=== PATIENT | female | born 1980 | race Caucasian/White ===

== ENCOUNTER 2019-01-24 02:28 | Emergency (ER) | payer MEDICAID ==
--- NOTE | 2019-01-24 03:14 | EDM.PDOC ---
ED HPI GENERAL MEDICAL PROBLEM - General Chief Complaint: Upper Extremity Injury/Pain Stated Complaint: cant get ring off finger Time Seen by Provider: 01/24/19 02:35 - History of Present Illness INITIAL COMMENTS - FREE TEXT/NARRATIVE: 38-year-old female presents emergency room with a ring stuck on her left ring finger Patient gave a little over 24 hours ago and put her engagement ring back on she developed some swelling. She's tried on liquid dental floss and several other maneuvers at home. But she cannot get the ring off. Left Finger-Ring Pain Score (Numeric/FACES): 3 - Related Data Allergies Allergy/AdvReac Type Severity Reaction Status Date / Time No Known Allergies Allergy Verified 01/24/19 02:38 Home Meds: Home Meds Enoxaparin Sodium [Lovenox] 40 mg SQ BID 12/13/18 [History] Iron,Carbonyl/Ascorbic Acid [Iron 100-Vitamin C Tablet] 1 each PO DAILY [History] Prenat Vit Comb.10/Iron/Fa/Dha [Vitafol-OB + DHA] 1 each PO DAILY 12/13/18 [ History] Past Medical History Cardiovascular History: Reports: Blood Clots/VTE/DVT Respiratory History: Reports: PE Social & Family History - Tobacco Use Smoking Status *Q: Never Smoker - Recreational Drug Use Recreational Drug Use: No Review of Systems - Review of Systems Review Of Systems: See Below Constitutional: Reports: No Symptoms Respiratory: Reports: No Symptoms Cardiovascular: Reports: No Symptoms GI/Abdominal: Reports: No Symptoms ED EXAM, GENERAL - Physical Exam Exam: See Below Exam Limited By: No Limitations General Appearance: Alert, No Apparent Distress Respiratory/Chest: No Respiratory Distress, Lungs Clear, Normal Breath Sounds Cardiovascular: Regular Rate, Rhythm, No Edema, No Murmur Extremities: Other (Patient has marked swelling in the soft tissue over the proximal phalanx of the affected finger. I tried several maneuvers and could not get the ring to come loose.) ED TRAUMA EXTREMITY PROCEDURES - Additional/Other Procedure(s) Other (Free Text) Procedure(s): Nursing using a ring cutter was able to remove the ring Course - Vital Signs Last Recorded V/S: Last Vital Signs Temp 37.0 C 01/24/19 02:36 Pulse 69 01/24/19 02:36 Resp 16 01/24/19 02:36 BP 124/89 01/24/19 02:36 Pulse Ox 97 01/24/19 02:36 Departure - Departure Time of Disposition: 03:12 Disposition: Home, Self-Care 01 Clinical Impression: External constriction of finger - Discharge Information Referrals: PCP,None [Primary Care Provider] - Forms: ED Department Discharge Additional Instructions: Return to the emergency room with any questions problems worsening symptoms.
== END 2019-01-24 03:22 | disposition home or self-care (01) ==
LOC: JD.ED 02:28
DX: S60.445A External constriction of left ring finger, initial encounter (principal); I82.409 Acute embolism and thrombosis of unspecified deep veins of unspecified lower extremity; Z79.01 Long term (current) use of anticoagulants; W49.04XA Ring or other jewelry causing external constriction, initial encounter
CPT/HCPCS: 99283

== ENCOUNTER 2019-02-01 17:37 | Emergency (ER) | payer MEDICAID ==
--- NOTE | 2019-02-01 17:53 | EDM.PDOC ---
ED HPI GENERAL MEDICAL PROBLEM - General Chief Complaint: Genitourinary Problem Stated Complaint: HEAVY VAG BLEEDING Time Seen by Provider: 02/01/19 17:46 - History of Present Illness INITIAL COMMENTS - FREE TEXT/NARRATIVE: 38-year-old female presents with bleeding. Patient is a 5 now para 4, 1 molar he had a fairly normal spontaneous vaginal delivery on the seventh of this month. Her pregnancies complicated by being on Lovenox because of a pulmonary embolism in the past. She just completed her oral therapy about the time she was diagnosed the . She was continued on Lovenox twice daily this was decreased to once daily about a week before sure due date and the plan was to continue once daily for 6 weeks and after delivery Shortly before arrival to the emergency room the patient thought she was hemorrhaging she past 3 clots after going to the bathroom were a little uncertain as to the volume of the clots but they figured it was about the size of a baseball with a conglomerate of all 3 clots. She had some bleeding small amount on the way to the emergency room.. She thinks her blood type is A+. - Related Data Allergies Allergy/AdvReac Type Severity Reaction Status Date / Time No Known Allergies Allergy Verified 02/01/19 17:49 Home Meds: Home Meds Enoxaparin Sodium [Lovenox] 40 mg SQ DAILY 12/13/18 [History] Iron,Carbonyl/Ascorbic Acid [Iron 100-Vitamin C Tablet] 1 each PO DAILY [History] Prenat Vit Comb.10/Iron/Fa/Dha [Vitafol-OB + DHA] 1 each PO DAILY 12/13/18 [ History] Past Medical History Cardiovascular History: Reports: Blood Clots/VTE/DVT Respiratory History: Reports: PE ED ROS GENERAL - Review of Systems Review Of Systems: See Below Constitutional: Reports: No Symptoms. Denies: Fever, Chills HEENT: Reports: No Symptoms, Vertigo Cardiovascular: Reports: No Symptoms Endocrine: Reports: No Symptoms GI/Abdominal: Reports: No Symptoms : Denies: Discharge, Dysuria, Flank Pain, Frequency, Hematuria, Incontinence, Pain, Urgency Musculoskeletal: Reports: No Symptoms Skin: Reports: No Symptoms Neurological: Reports: No Symptoms Psychiatric: Reports: No Symptoms Hematologic/Lymphatic: Reports: No Symptoms ED EXAM - Physical Exam Exam: See Below Exam Limited By: No Limitations General Appearance: Alert, No Apparent Distress, Other (Vital signs stable afebrile she is not tachycardic blood pressure looks good) Head: Atraumatic, Normocephalic Neck: Normal Inspection, Supple, Non-Tender, Full Range of Motion Respiratory/Chest: No Respiratory Distress, Lungs Clear, Normal Breath Sounds Cardiovascular: Regular Rate, Rhythm, No Edema, No Murmur, Irregularly Irregular GI/Abdominal Exam: Normal Bowel Sounds, Non-Tender, Other (No tenderness with palpation.) (Female) Exam: Normal External Exam, Vaginal Bleeding, Other (No vaginal lacerations identified cervix is closed at this point she had a small amount of blood that was suctioned out of the vaginal vault the cervix was fully visualized no tissue identified in really no active bleeding. After this the patient was observed for couple hours had an ultrasound done where she really didn't have any active bleeding ultrasound report showed small amount of fluid within the endometrial cavity most likely due to blood possible small amount of soft tissue density been seen difficult to exclude minimal retained products of conception remaining pelvic ultrasound was unremarkable. Auditory evaluation shows a very get H&H white count is not elevated no leftward shift chemistries look normal she is indeed blood type A positive) Extremities: Normal Inspection, Non-Tender, No Pedal Edema Neurological: Alert, Oriented, Normal Cognition Course - Vital Signs Last Recorded V/S: Last Vital Signs Temp 36.3 C 02/01/19 17:41 Pulse 90 02/01/19 17:41 Resp 16 02/01/19 17:41 BP 139/86 02/01/19 17:41 Pulse Ox 98 02/01/19 17:41 - Orders/Labs/Meds Orders: Active Orders 24 hr Category Date Time Status Pelvic Exam, Set Up [RC] ASDIRECTED Care 02/01/19 18:00 Active PATIENT RETYPE [BBK] Routine Lab 02/01/19 18:53 Ordered Lactated Ringers [Ringers, Lactated] 1,000 ml Med 02/01/19 18:15 Active IV ASDIRECTED Medication Orders Lactated Ringer's (Ringers, Lactated) 1,000 mls @ 100 mls/hr IV ASDIRECTED ALESSIA Last Admin: 02/01/19 18:27 Dose: 100 mls/hr Labs: Laboratory Tests 10/02/01/19 02/01/19 Range/Units 17:40 17:40 17:40 WBC 7.91 (3.98-10.04) K/mm3 RBC 4.99 (3.98-5.22) M/mm3 Hgb 16.1 H (11.2-15.7) gm/dl Hct 48.4 H (34.1-44.9) % MCV 97.0 H (79.4-94.8) fl MCH 32.3 H (25.6-32.2) pg MCHC 33.3 (32.2-35.5) g/dl RDW Std Deviation 43.5 (36.4-46.3) fL Plt Count 441 H (182-369) K/mm3 MPV 10.3 (9.4-12.3) fl Neutrophils % (Manual) 58 (40-60) % Band Neutrophils % 0 (0-10) % Lymphocytes % (Manual) 29 (20-40) % Atypical Lymphs % 0 % Monocytes % (Manual) 6 (2-10) % Eosinophils % (Manual) 6 H (0.7-5.8) % Basophils % (Manual) 1 (0.1-1.2) Platelet Estimate Adequate RBC Morph Comment Normal PT 10.2 (9.7-12.0) SECONDS INR 0.93 APTT (22-31) SECONDS Sodium 139 (136-145) mEq/L Potassium 3.8 (3.5-5.1) mEq/L Chloride 102 (98-107) mEq/L Carbon Dioxide 26 (21-32) mEq/L Anion Gap 14.8 (5-15) BUN 11 (7-18) mg/dL Creatinine 0.7 (0.55-1.02) mg/dL Est Cr Clr Drug Dosing 113.88 mL/min Estimated GFR (MDRD) > 60 (>60) mL/min BUN/Creatinine Ratio 15.7 (14-18) Glucose 102 (74-106) mg/dL Calcium 9.4 (8.5-10.1) mg/dL Total Bilirubin 0.2 (0.2-1.0) mg/dL AST 14 L (15-37) U/L ALT 29 (14-59) U/L Alkaline Phosphatase 96 (46-116) U/L Total Protein 7.6 (6.4-8.2) g/dl Albumin 3.5 (3.4-5.0) g/dl Globulin 4.1 gm/dL Albumin/Globulin Ratio 0.9 L (1-2) Blood Type Gel Antibody Screen 02/01/19 02/01/19 Range/Units 17:40 17:40 WBC (3.98-10.04) K/mm3 RBC (3.98-5.22) M/mm3 Hgb (11.2-15.7) gm/dl Hct (34.1-44.9) % MCV (79.4-94.8) fl MCH (25.6-32.2) pg MCHC (32.2-35.5) g/dl RDW Std Deviation (36.4-46.3) fL Plt Count (182-369) K/mm3 MPV (9.4-12.3) fl Neutrophils % (Manual) (40-60) % Band Neutrophils % (0-10) % Lymphocytes % (Manual) (20-40) % Atypical Lymphs % % Monocytes % (Manual) (2-10) % Eosinophils % (Manual) (0.7-5.8) % Basophils % (Manual) (0.1-1.2) Platelet Estimate RBC Morph Comment PT (9.7-12.0) SECONDS INR APTT 26 (22-31) SECONDS Sodium (136-145) mEq/L Potassium (3.5-5.1) mEq/L Chloride (98-107) mEq/L Carbon Dioxide (21-32) mEq/L Anion Gap (5-15) BUN (7-18) mg/dL Creatinine (0.55-1.02) mg/dL Est Cr Clr Drug Dosing mL/min Estimated GFR (MDRD) (>60) mL/min BUN/Creatinine Ratio (14-18) Glucose (74-106) mg/dL Calcium (8.5-10.1) mg/dL Total Bilirubin (0.2-1.0) mg/dL AST (15-37) U/L ALT (14-59) U/L Alkaline Phosphatase (46-116) U/L Total Protein (6.4-8.2) g/dl Albumin (3.4-5.0) g/dl Globulin gm/dL Albumin/Globulin Ratio (1-2) Blood Type A POSITIVE Gel Antibody Screen Negative Meds: Medications Generic Name Dose Route Start Last Admin Trade Name Sumit PRN Reason Stop Dose Admin Lactated Ringer's 1,000 mls @ 100 mls/hr 02/01/19 18:15 02/01/19 18:27 Ringers, Lactated IV 100 mls/hr ASDIRECTED ALESSIA Administration Discontinued Medications Generic Name Dose Route Start Last Admin Trade Name Sumit PRN Reason Stop Dose Admin Ondansetron HCl 4 mg 02/01/19 18:23 Zofran IVPUSH 02/01/19 18:24 ONETIME ONE Ondansetron HCl Confirm 02/01/19 18:24 02/01/19 18:27 Zofran Administered 02/01/19 18:25 Not Given Dose 4 mg .ROUTE .STK-MED ONE - Re-Assessments/Exams Free Text/Narrative Re-Assessment/Exam: 02/01/19 21:00 The patient is indeed blood type A positive. Her hemoglobin and hematocrit and CBC looks very unremarkable and pretty good for being chemistries look good coags are normal. Early in the patient's course the case was discussed with Dr. De La Paz. And after all the results were back the patient will be continued on her Lovenox and she is to call her vocational guidance counselor first thing in the morning to discuss the situation with her. Departure - Departure Time of Disposition: 20:37 Disposition: Home, Self-Care 01 Clinical Impression: bleeding - Discharge Information Instructions: Hemorrhage Referrals: PCP,None [Primary Care Provider] - Forms: ED Department Discharge Additional Instructions: Return to the emergency room with any questions problems or work worsening symptoms. Call your vocational guidance counselor in the morning. Continue the Lovenox as prescribed. - My Orders Last 24 Hours: My Active Orders 02/01/19 18:00 Pelvic Exam, Set Up [RC] ASDIRECTED 02/01/19 18:15 Lactated Ringers [Ringers, Lactated] 1,000 ml IV ASDIRECTED 02/01/19 18:53 PATIENT RETYPE [BBK] Routine - Assessment/Plan Last 24 Hours: My Active Orders 02/01/19 18:00 Pelvic Exam, Set Up [RC] ASDIRECTED 02/01/19 18:15 Lactated Ringers [Ringers, Lactated] 1,000 ml IV ASDIRECTED 02/01/19 18:53 PATIENT RETYPE [BBK] Routine
[2019-02-01] MEDS ORDERED: Lactated Ringers 1,000 ML IV SCH (18:15)
[2019-02-01] MEDS ORDERED: Ondansetron 4 MG/2 ML SDV IVPUSH ONE (18:23)
[2019-02-01] MEDS ORDERED: Ondansetron 4 MG/2 ML SDV ONE (18:24)
--- NOTE | 2019-02-01 20:08 | US ---
Pelvic ultrasound: Multiple real-time images were obtained transvaginally. Comparison: No previous pelvic imaging. Small amount of fluid seen within the endometrial cavity most likely due to blood containing minimal soft tissue density. Difficult to exclude minimal retained products of conception. No myometrial abnormality is seen. Small cyst is noted within the right ovary measuring 1.9 cm which is simple and felt to be incidental. Left ovary is unremarkable. No free fluid is seen. Measurements: Uterus: Length 17.9 cm, AP height is 7.5 cm, transverse width 11.9 cm Right ovary: 4.1 x 1.4 x 2.7 cm Left ovary: 2.7 x 1.2 x 2.7 cm Impression: 1. Small amount of fluid within the endometrial cavity most likely due to blood. There is a small amount of soft tissue density being seen and difficult to exclude minimal retained products of conception. 2. Other portions of the pelvic ultrasound study are unremarkable. Diagnostic code #3
== END 2019-02-01 20:50 | disposition home or self-care (01) ==
LOC: JD.ED 17:37
DX: O72.2 Delayed and secondary postpartum hemorrhage (principal); O99.89 Other specified diseases and conditions complicating pregnancy, childbirth and the puerperium; I82.409 Acute embolism and thrombosis of unspecified deep veins of unspecified lower extremity; Z79.01 Long term (current) use of anticoagulants
CPT/HCPCS: 36415; 76856; 80053; 85007; 85027; 85610; 85730; 86850; 86900; 86901; 96360; 96361; 99284; J7120; 99283

== ENCOUNTER 2022-05-01 17:18 | Emergency (ER) | payer MEDICAID ==
[2022-05-01] MEDS ORDERED: Sodium Chloride 0.9% 10 ML Syringe FLUSH PRN (18:08)
[2022-05-01] MEDS ORDERED: LORazepam 2 MG/ML SDV IVPUSH ONE (18:28)
[2022-05-01] MEDS ORDERED: Ketorolac 30 MG/ML SDV IVPUSH PRN (23:09)
== END 2022-05-02 02:03 | disposition home or self-care (01) ==
LOC: JD.ED 17:18
DX: R07.89 Other chest pain (principal); R94.31 Abnormal electrocardiogram [ECG] [EKG]
CPT/HCPCS: 36415; 76705; 76705-26; 80053; 81001; 82465; 83718; 83721; 83735; 83880; 84484; 85025; 85379; 85610; 85652; 85730; 86140; 93005; 99285